=== PATIENT | female | born 1980 | race Caucasian/White ===

== ENCOUNTER 2023-09-02 10:48 | Outpatient (CLI) | payer BC, SELFPAY ==
--- OUTSIDE RECORDS SUMMARY | 2023-09-05 09:43 | XMS_ITS | Patient Health Record ---
Author Name Unknown Organization [facility] Address [address] [place], [place] [id number] Care Team Providers Care Plastics Technician Name Role Phone Emma Ashton Primary Care Provider Unavailab Francisco Mcintosh Unavailable [phone] Dyllan Grove Unavailable [phone] ALLERGIES No Known Allergies RESULTS Component Value Reference Range Notes DHEA SULFATE Reviewed date:09/24/2022 07:23:06 AM Interpretation: Performing Lab:[facility] M[facility]o [id number] Zenitum [id number] Luigi Weiss M.D. Notes/Report: 0 0 0 0 0 0 0 0 DHEA SULFATE 27 15-205 mcg/dL DHEA-S values fall with advancing age. For reference, the reference intervals for 31-40 year old patients are: Male: 93-415 mcg/dL Female: 19-237 mcg/dL VITAMIN B12 Reviewed date:09/24/2022 07:23:06 AM Interpretation: Performing Lab:[facility] Grha3383 iHighLavelleDobmHY[address] Luigi Weiss M.D. Notes/Report: 0 0 0 0 0 0 0 0 VITAMIN B12 742 169-7283 pg/mL Please Note: Although the reference range for vitamin B12 is 200-1100 pg/mL, it has been reported that between 5 and 10% of patients with values between 200 and 400 pg/mL may experience neuropsychiatric and hematologic abnormalities due to occult B12 deficiency; less than 1% of patients with values above 400 pg/mL will have symptoms. PROLACTIN Reviewed date:09/24/2022 07:23:06 AM Interpretation: Performing Lab:[facility] Systemse1355 [facility] Luigi Weiss M.D. Notes/Report: 0 0 0 0 0 0 0 0 PROLACTIN 7.9 Reference Range Females Non- 3.0-30.0 10.0-209.0 Postmenopausal 2.0-20.0 CORTISOL, TOTAL Reviewed date:09/24/2022 07:23:06 AM Interpretation: Performing Lab:[facility]13[address] [facility]IP[facility] Luigi Weiss M.D. Notes/Report: 0 0 0 0 0 0 0 0 CORTISOL, TOTAL 1.4 Reference Range: For 8 a.m.(7-9 a.m.) Specimen: 4.0-22.0 Reference Range: For 4 p.m.(3-5 p.m.) Specimen: 3.0-17.0 * Please interpret above results accordingly * TSH Reviewed date:09/24/2022 07:23:06 AM Interpretation: Performing Lab:[facility] Stagee[place] [id number] [facility]ielo24 Liquor.comRedwood LLCZvocRT[address] Luigi Weiss M.D. Notes/Report: 0 0 0 0 0 0 0 0 TSH 2.02 Reference Range > or = 20 Years 0.40-4.50 Ranges First trimester 0.26-2.66 Second trimester 0.55-2.73 Third trimester 0.43-2.91 SEX HORMONE BINDING GLOBULIN Reviewed date:09/24/2022 07:23:06 AM Interpretation: Performing Lab:[facility]13[address] [facility] Luigi Weiss M.D. Notes/Report: 0 0 0 0 0 0 0 0 SEX HORMONE BINDING GLOBULIN 88 17-124 nmol/L TESTOSTERONE, TOTAL, LC/MS/M S Reviewed date:09/24/2022 07:23:06 AM Interpretation: Performing Lab:[facility], Med[facility]-AuuElsobg[address] [place] [address], [address], KhhmmdzcdfWX[address] Antonio Aly MD Notes/Report: 0 0 0 0 0 0 0 0 TESTOSTERONE, TOTAL, MS TNP TEST NOT PERFORMED SST (serum separator tube) is not an acceptable specimen for this test. Resubmit serum from a plain red-top tube. TESTOSTERONE, FREE Reviewed date:09/24/2022 07:23:07 AM Interpretation: Performing Lab:[facility], [facility]-TrqKhzvaj[address] [place] [address], [address], RvfqdgrwniPD[address] Antonio Aly MD Notes/Report: 0 0 0 0 0 0 0 0 TESTOSTERONE, FREE TNP TEST NOT PERFORMED SST (serum separator tube) is not an acceptable specimen for this test. Resubmit serum from a plain red-top tube. COMPREHENSIVE METABOLIC PANE L Reviewed date:09/24/2022 07:51:14 AM Interpretation: Performing Lab:[facility], [facility]itum Yvmu8661 BuyVIPtel Liquor.comvd, zkipsterLwueSD[address] Luigi Weiss M.D. Notes/Report: 0; 0; 0; 0 GLUCOSE 83 65-99 mg/dL Fasting reference interval UREA NITROGEN (BUN) 19 7-25 mg/dL CREATININE 0.95 0.50-0.99 mg/dL EGFR 76 > OR = 60 mL/min/1.73m2 The eGFR is based on the CKD-EPI 2020 equation. To calculate the new eGFR from a previous Creatinine or Cystatin C result, go to https://www.kidney.org/pro fessionals/ kdoqi/gfr%5Fcalculator BUN/CREATININE RATIO NOT APPLICABLE 6-22 (calc) SODIUM 139 135-146 mmol/L POTASSIUM 4.5 3.5-5.3 mmol/L CHLORIDE 104 98-110 mmol/L CARBON DIOXIDE 29 20-32 mmol/L CALCIUM 9.5 8.6-10.2 mg/dL PROTEIN, TOTAL 6.7 6.1-8.1 g/dL ALBUMIN 4.3 3.6-5.1 g/dL GLOBULIN 2.4 1.9-3.7 g/dL (calc) ALBUMIN/GLOBULIN RATIO 1.8 1.0-2.5 (calc) BILIRUBIN, TOTAL 1.4 0.2-1.2 mg/dL ALKALINE PHOSPHATASE 37 31-125 U/L AST 15 10-30 U/L ALT 14 6-29 U/L CORTISOL, TOTAL Reviewed date:09/24/2022 07:51:14 AM Interpretation: Performing Lab:[facility]Zenitum [address], EvermedePqapZN[address] Luigi Weiss M.D. Notes/Report: 0; 0; 0; 0 CORTISOL, TOTAL 6.5 Reference Range: For 8 a.m.(7-9 a.m.) Specimen: 4.0-22.0 Reference Range: For 4 p.m.(3-5 p.m.) Specimen: 3.0-17.0 * Please interpret above results accordingly * TESTOSTERONE, TOTAL, LC/MS/M S Reviewed date:09/28/2022 03:10:22 PM Interpretation: Performing Lab:Z3E, OrderWithMe-GdwNnkqfj[address] [place] [address], [address] Boy[address] StreetTX[address] Antonio Aly MD Notes/Report: 0; 0; 0; 0 TESTOSTERONE, TOTAL, MS 9 2-45 ng/dL For additional information, please refer to https://AGILE customer insight.PhotoSolar/faq/TotalTest osteroneLCMSMS (This link is being provided for informational/educational purposes only.) (Note) This test was developed and its analytical performance characteristics have been determined by [employer]. It has not been cleared or approved by the FDA. This assay has been validated pursuant to the CLIA regulations and is used for clinical purposes. [facility] [address] [place] [address],[place] [address] Antonio Aly MD TESTOSTERONE, FREE Reviewed date:09/28/2022 03:10:22 PM Interpretation: Performing Lab:Z3E, OrderWithMe-SciFjldrg[address] [place] [address], [address] StreetTX[address] Antonio Aly MD Notes/Report: 0; 0; 0; 0 TESTOSTERONE, FREE 0.5 0.2-5.0 pg/mL (Note) The concentration of free testosterone is derived from a mathematical model using total testosterone by LCMSMS, sex hormone binding globulin and albumin. This test was developed and its analytical performance characteristics have been determined by [employer]. It has not been cleared or approved by the FDA. This assay has been validated pursuant to the CLIA regulations and is used for clinical purposes. [employer] [address] [place] [address],[address] [place] [address] Antonio Aly MD Test, Urine Reviewed date:02/07/2023 11:57:09 AM Interpretation: Performing Lab: Notes/Report: Test, Urine negative Negative - DHEA SULFATE Reviewed date:11/26/2022 08:15:20 AM Interpretation: Performing Lab:[facility]Lavelle Emmanuele[address] [facility], Lavelle EmmanuelQkahAD[address] Luigi Weiss M.D. Notes/Report: DHEA SULFATE 182 15-205 mcg/dL DHEA-S values fall with advancing age. For reference, the reference intervals for 31-40 year old patients are: Male: 93-415 mcg/dL Female: 19-237 mcg/dL REASON FOR REFERRAL No Information MEDICATIONS Medication SIG (Take, Route, Frequency, Duration) Notes Start Date End Date Status Phentermine HCl 37.5 MG TAKE 1 TABLET (37.5 MG) BY MOUTH ONCE DAILY BEFORE A MEAL. NOT COVERED BY INSURANCE Oral for 30 Days Not-Taking Ketoconazole 2 % External for 30 Days Unknown Spironolactone 25 MG Oral for 30 Days Not-Taking Progesterone 100 MG as directed Orally once nightly for 30 days 1 fill with 2 refills 12/07/2022 Active Rizatriptan Benzoate 10 MG Oral for 30 Days Not-Taking Liletta _insert 10.29.2022 Active Omeprazole 20 MG Oral for 90 Days Active HYDROcodone-Acetaminop hen 5-325 MG 1 tablet once prior to procedure Orally once 30-60 min. prior to procedure for 1 days 09/28/2022 Active Valium 5 MG 1 tablet once Orally once 30-60 min. prior to procedure for 1 days 09/28/2022 Active SOCIAL HISTORY Tobacco Use: Social History Observation Description Date Details (start date - stop date) Never Smoker NA - NA Sex Assigned At : Social History Observation Description Sex Assigned At Unknown Tobacco Use/Smoking Question Answer Notes Are you a nonsmoker Alcohol Screen (Audit-C) Question Answer Notes Did you have a drink contain ing alcohol in the past year? Yes How often did you have a dri nk containing alcohol in the past year? 2 to 4 times a month (2 points) How many drinks did you have on a typical day when you were drinking in the past year? 1 or 2 drinks (0 point) Points 2 Interpretation Negative PROBLEMS Problem Type ICD Code Onset Dates Problem Status W/U Status Risk SNOMED Code Notes Problem Menopausal and female climacteric states (N95.1) Active confirmed Menopause (065385673) Problem Sleep difficulties (G47.9) Active confirmed 625601604 Problem PMS (premenstrual syndrome) (N94.3) Active confirmed 44192467 Problem Perimenopausal disorder (N95.9) Active confirmed 993096722 Problem Menorrhagia with regular cycle (N92.0) Active confirmed 021876353 Problem Heavy menses (N92.0) Active confirmed Excessive and frequent menstruation (492260936) Problem Hot flashes (N95.1) Active confirmed Hot flashes (000432280) Problem History of sleeve gastrectomy (Z90.3) Active confirmed History of sleeve gastrectomy (87977813314357 7) VITAL SIGNS Blood pressure diastolic 74 mm Hg 11/25/2022 Height 67.75 in 11/25/2022 Blood pressure systolic 132 mm Hg 11/25/2022 Weight 180.4 lbs 11/25/2022 BMI 27.63 kg/m2 11/25/2022 Encounters Encounter Location Date Provider Diagnosis [address] [facility] [address] [place] [address] 09/09/2022 [facility] [address] [place], [place] [address] 09/20/2022 Francisco Jean Abnormal cortisol level R79.89 [facility] [address] [place] [address] [place] [address] 12/06/2022 Francisco Jean [facility] [address] [place] [address] 09/27/2022 Francisco Jean [facility] [place] [address] [place] [address] 12/07/2022 Francisco Jean [facility] [address] [place] [address] 12/07/2022 Francisco Jean [facility] [place] [address] [place] [address] 12/07/2022 Francisco Jean [facility] [address] [place] [address] 11/25/2022 Francisco Jean IUD check up Z30.431 ; Perimenopausal disorder N95.9 ; Anemia D64.9 ; Heavy menses N92.0 and Sleep difficulties G47.9 [facility] [address] [place] [address] 10/29/2022 Francisco Jean Encounter for IUD insertion Z30.430 [facility] [address] [place] [address] 10/29/2022 Francisco Jean Encounter for pre-operative laboratory testing Z01.812 [facility] [address] [place] [address] 11/25/2022 Francisco Jean Fatigue R53.83 and Menopausal and female climacteric states N95.1 [facility] [address] [place] [address] 09/14/2022 Francisco Jean Heavy menses N92.0 ; Anemia D64.9 ; Hot flashes N95.1 ; Fatigue R53.83 and Encounter for special screening examination for nutritional disorder Z13.21 [facility] [address] [place] [address] 09/21/2022 Francisco Jean Menopausal and femal e climacteric states N95.1 ; Elevated cortisol level R79.89 and Screening for metabolic disorder Z13.[address] [address] 09/14/2022 Francisco Jean Menorrhagia with regular cycle N92.0 ; PMS (premenstrual syndrome) N94.3 and Sleep difficulties G47.9 [facility] [address] [place] [address] 11/25/2022 Francisco Jean Checking of intrauterine device Z30.431 [facility] [address] [place] [address] 09/28/2022 Francisco Jean PMS (premenstrual syndrome) N94.3 ; Menorrhagia with regular cycle N92.0 ; Sleep difficulties G47.9 and Fatigue R53.83 [place] [address] [place] [address] 09/14/2022 Francisco Rolanchantell ASSESSMENTS Encounter Date Diagnosis Assessment Notes Treatment Notes Treatment Clinical Notes 09/14/2022 PMS (premenstrual syndrome) (ICD-10 - N94.3) Reports notable improvement in sleep, energy and mood with 10 days of medroxyprogesterone last winter. Discussed oral medroxyprogesterone is not indicated for management of PMS and typically only recommended short term to manage amenorrhea or heavy vaginal bleeding Discussed alternative option with prometrium (progesterone) caps which can be initiated at onset of PMS symptoms/after ovulation and discontinued with onset of menses. Would like to trial therapy at this time 09/14/2022 Menorrhagia with regular cycle (ICD-10 - N92.0) 09/14/2022 Heavy menses (ICD-10 - N92.0) 09/28/2022 PMS (premenstrual syndrome) (ICD-10 - N94.3) 09/28/2022 Menorrhagia with regular cycle (ICD-10 - N92.0) Had work up with Primary FEED MIXER HELPER at [facility] including EMB. Counseled on LNG-IUD which she is open to. Requesting to have placed here, along wtih having pain management stronger than OTC NSAIDs. Plan pre-procedure medications with oral valium and hydrocodone. Cautioned on drowsiness with therapy and needing a waste collection driver to and from appt. EMB results from 09/22/22 reviewed in eEHX: A) ENDOMETRIUM, BIOPSY: 1. Weakly proliferative endometrium with breakdown 2. Negative for chronic endometritis 3. Negative for hyperplasia, atypia, and malignancy 10/29/2022 Encounter for pre-operative laboratory testing (ICD-10 - Z01.812) 11/25/2022 Checking of intrauterine device (ICD-10 - Z30.431) 11/25/2022 Perimenopausal disorder (ICD-10 - N95.9) Recheck DHEA-S level today since starting daily supplementation. Unsure which dose she is taking. Had recommended 10-25mg PO daily. Will notify with results and recommendations for dosing. Denies bothersome side effects including acne/hirsutism. 11/25/2022 IUD check up (ICD-10 - Z30.431) 09/20/2022 Abnormal cortisol level (ICD-10 - R79.89) 11/25/2022 Fatigue (ICD-10 - R53.83) 10/29/2022 Encounter for IUD insertion (ICD-10 - Z30.430) 09/21/2022 Menopausal and female climacteric states (ICD-10 - N95.1) 09/21/2022 Screening for metabolic disorder (ICD-10 - Z13.228) 09/21/2022 Elevated cortisol level (ICD-10 - R79.89) 09/28/2022 Sleep difficulties (ICD-10 - G47.9) 11/25/2022 Menopausal and female climacteric states (ICD-10 - N95.1) 11/25/2022 Anemia (ICD-10 - D64.9) 09/14/2022 Hot flashes (ICD-10 - N95.1) 09/14/2022 Sleep difficulties (ICD-10 - G47.9) 09/14/2022 Anemia (ICD-10 - D64.9) 09/14/2022 Fatigue (ICD-10 - R53.83) 11/25/2022 Heavy menses (ICD-10 - N92.0) 09/28/2022 Fatigue (ICD-10 - R53.83) 11/25/2022 Sleep difficulties (ICD-10 - G47.9) 09/14/2022 Encounter for special screening examination for nutritional disorder (ICD-10 - Z13.21) 09/14/2022 Other -HRT Labs drawn today. Reasoning for labs discussed in detail -HRT options reviewed in detail, including oral progesterone, transdermal testosterone or pellet HRT, risks/benefits, common side effects, costs and dosing schedule. -Counseled on associated increased risks for SC, CVA, VTE, and breast cancer with some forms of hormone replacement therapy. HRT could decrease associated lifetime risks, specifically with the use of bioidentical hormones including estradiol, progesterone, and/or testosterone preparations. Bioidentical hormonal therapies have not been shown to increase risks for SC, CVA, VTE, and/or breast cancer, but do not guarantee prevention of developing these risks if used. -Patient education and informed consent in HRT packet completed and signed today. Copies given of signed forms. -Breast cancer screening policy reviewed and printed handout given. 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 Patient consent for virtual visit was obtained. Originating site: [facility] location Distant site: pt home Start time: 1119 Stop time:1139 HRT labs reviewed. Discussed suboptimal Vitamin B12 level, DHEA-S, free/total testosterone levels and options for treatment including OTC vitamin B12 1000-2000mcg SL or liquid form daily, DHEA 10-25mg PO daily (PURE encapsulations brand), and/or testosterone therapy including compounded transdermal cream or pellet HRT. -At this time most interested in starting OTC suppelements of B12 and DHEA first. Then may consider adding testotserone to regimen. -Plan to continue with oral progesterone for PMS/menstrual related symptoms, can take for longer then 10 days if symptoms persist, cautioned on risks for abnormal bleeding if she takes continuously. Plan repeat labs for DHEA 4-8 weeks after she starts supplementation with optimal level of 200 being goal 25 min. spent reviewing previous notes, lab results, therapies, answering questions/concerns, and discussing ongiong therapy options, along with time spent documenting today's visit note. 10/29/2022 Other IUD insertion without complications as documented below Back up contraception advised for at least 7 days before IUD is considered effective as contraception Common side effects of spotting or light bleeding, and mild cramping after procedure reviewed. Can use NSAID's, acetaminophen, and/or local heat can help with cramping after today's procedure Warning signs to report including heavy vaginal bleeding, severe/worsening pelvic pain, or fever/chills after procedure should be reported to clinic Plan IUD check with exam and pelvic US in 4 weeks. Sooner if any concers 11/25/2022 Other US and exam findings reviewed. IUD appears in appropriate position without concerns today. Reassurance given. IUD check [facility] annual exams or sooner with any problems. 15 min. of total time spent in chart prep, reviewing US, and documenting today's visit. PLAN OF TREATMENT No Information Insurance Providers Payer Name Payer Address Payer Phone Subscriber Number Group Number Insured Name Patient Relationship to Insured Coverage Start Date Coverage End Date [facility] [address] [address] [place], [place] [phone] [id number] Kim Montgomery Self - patient is the insured MEDICAL (GENERAL) HISTORY Medical History History ICD Code History of sleeve gastrectomy Anemia Diverticulitis breast augmentation Surgical History Surgery Date(Month/Year) gastric sleeve anthony 1997 breast lift, augmentation, excess skin r emoval 2016
== END 2023-09-02 10:49 | disposition home or self-care (01) ==
LOC: AMB 09-05 09:41
PROVIDERS: Visit Provider Family Medicine
DX: K92.2 Gastrointestinal hemorrhage, unspecified (principal)
CPT/HCPCS: A0425; A0429